=== PATIENT | female | born 1995 | race Caucasian/White ===

== ENCOUNTER 2021-07-01 00:37 | Inpatient (IN) | payer OTHER ==
[2021-07-01] MEDS ORDERED: KETOROLAC TROMETHAMINE 30 MG/1 ML VIAL IVPUSH ONE (01:18)
[2021-07-01 01:30] LABS: EPI CELLS 32 /uL (0-25.1); HYALINE CASTS 9 /uL (0-3.1); URINE APPEARANCE CLOUDY; URINE BACTERIA 1252 /uL (0-1359); URINE BILIRUBIN 1+ (NEGATIVE); URINE COLOR DK YELLOW; URINE GLUCOSE (UA) NEGATIVE (NEGATIVE); URINE KETONE NEGATIVE (NEGATIVE); URINE LEUK ESTERASE 1+ (NEGATIVE); URINE NITRITE NEGATIVE (NEGATIVE); URINE PROTEIN NEGATIVE (NEGATIVE); URINE RBC 29 /uL (0-23.9); URINE WBC 144 /uL (0-25.8)
[2021-07-01] MEDS ORDERED: KETOROLAC TROMETHAMINE 30 MG/1 ML VIAL ONE (01:47)
[2021-07-01 02:11] LABS: BASO % 1.2 % (0-2.0); EOS % 0.9 % (0-4.5); HEMATOCRIT 38.2 % (32.4-45.2); HEMOGLOBIN 12.6 GM/dL (10.7-15.3); LYMPH % 20.6 % (8-40); MCHC 32.9 g/dl (32.0-36.0); MEAN PLT VOLUME 10.7 fl (7.5-11.1); MONO % 9.3 % (3.8-10.2); PLATELET COUNT 193 10^3/uL (134-434); RBC 4.49 M/mm3 (3.60-5.2); RDW 12.8 % (11.6-15.6); WHITE BLOOD COUNT 9.2 K/mm3 (4.0-10.0)
[2021-07-01 02:30] LABS: CALCIUM 8.5 mg/dL (8.5-10.1)
[2021-07-01 02:31] LABS: ALBUMIN 3.5 g/dl (3.4-5.0); BLOOD UREA NITROGEN 13.4 mg/dL (7-18)
[2021-07-01 02:34] LABS: CREATININE 0.6 mg/dL (0.55-1.3)
[2021-07-01 02:35] LABS: BILIRUBIN,TOTAL 1.2 mg/dL (0.2-1); TOT PROT 6.8 g/dl (6.4-8.2)
[2021-07-01 03:59] LABS: INR 1.14 (0.83-1.09); PROTHROMBIN TIME (PATIENT) 13.1 SEC (9.7-13.0)
[2021-07-01 04:01] LABS: ACTIVATED PTT 27.7 SECONDS (25.2-36.5)
[2021-07-01 04:05] LABS: CHLORIDE 109 mmol/L (98-107); SODIUM 140 mmol/L (136-145)
[2021-07-01 04:06] LABS: CALCIUM 8.4 mg/dL (8.5-10.1)
[2021-07-01 04:08] LABS: ALBUMIN 3.6 g/dl (3.4-5.0); ANION GAP 7 MMOL/L (8-16); CO2 24 mmol/L (21-32); MAGNESIUM 1.8 mg/dL (1.8-2.4)
[2021-07-01 04:09] LABS: GLUCOSE,RANDOM 82 mg/dL (74-106)
[2021-07-01 04:10] LABS: SGPT/ALT 448 U/L (13-61)
[2021-07-01 04:11] LABS: BILIRUBIN,DIRECT 0.7 mg/dL (0.0-0.2); CREATININE 0.5 mg/dL (0.55-1.3); SGOT/AST 848 U/L (15-37)
[2021-07-01 04:12] LABS: PHOSPHOROUS 4.3 mg/dL (2.5-4.9); TOT PROT 6.5 g/dl (6.4-8.2)
[2021-07-01 04:13] LABS: BILIRUBIN,TOTAL 1.2 mg/dL (0.2-1); LDH 641 U/L (84-246)
[2021-07-01 04:15] LABS: ALK PHOS 201 U/L (45-117)
[2021-07-01] MEDS: SODIUM CHLORIDE 1,000 ML IV SCH ×2 (05:54→13:55)
[2021-07-01] MEDS ORDERED: PIPERACILLIN/TAZOBACTAM 3.375 GM VIAL IVPB ONE ×2 (13:52→20:30)
[2021-07-01] MEDS ORDERED: DEXTROSE 5%-WATER - 50 ML IVPB ONE ×2 (13:52→20:30)
[2021-07-01] MEDS: PIPERACILLIN/TAZOB 3.375 GM 3.375 GM in DEXTROSE 5%-WATER - 50 ML IVPB SCH (14:00)
[2021-07-01 14:29] VITALS: BMI 23.8
[2021-07-01 15:58] LABS: COCAINE, UR NEGATIVE (NEGATIVE); METHADONE, UR NEGATIVE (NEGATIVE); OPIATES, URI NEGATIVE (NEGATIVE); PHENCYCLIDINE,URINE NEGATIVE (NEGATIVE); URINE BENZODIAZEPINES NEGATIVE (NEGATIVE)
[2021-07-01 15:59] LABS: URINE AMPHETAMINES NEGATIVE (NEGATIVE)
[2021-07-01 16:00] LABS: URINE BARBITURATES NEGATIVE (NEGATIVE)
[2021-07-01 16:43] LABS: BASO % 0.6 % (0-2.0); EOS % 1.2 % (0-4.5); HEMOGLOBIN 12.6 GM/dL (10.7-15.3); LYMPH % 25.5 % (8-40); MCH 27.7 pg (25.7-33.7); MCHC 32.3 g/dl (32.0-36.0); MEAN CELL VOLUME 85.8 fl (80-96); NEUT % 64.7 % (42.8-82.8); PLATELET COUNT 209 10^3/uL (134-434); RBC 4.55 M/mm3 (3.60-5.2); RDW 12.7 % (11.6-15.6); WHITE BLOOD COUNT 6.2 K/mm3 (4.0-10.0)
[2021-07-01 17:06] LABS: ALBUMIN 3.5 g/dl (3.4-5.0); BILIRUBIN,DIRECT 0.3 mg/dL (0.0-0.2); BILIRUBIN,TOTAL 0.8 mg/dL (0.2-1); BLOOD UREA NITROGEN 7.4 mg/dL (7-18); CALCIUM 8.4 mg/dL (8.5-10.1); CREATININE 0.6 mg/dL (0.55-1.3); TOT PROT 6.2 g/dl (6.4-8.2)
[2021-07-01] MEDS ORDERED: diazePAM CARPU-JECT 10 MG/2 ML DISP.SYRIN IVPUSH PRN (18:21)
[2021-07-01 18:22] LABS: HIV INTERPRETATION NEGATIVE (NEGATIVE)
[2021-07-01] MEDS ORDERED: MELATONIN 5 MG TABLETS PO ONE (22:53)
[2021-07-02] MEDS ORDERED: DEXTROSE 5%-WATER - 50 ML IVPB ONE ×2 (00:04→10:31)
[2021-07-02] MEDS ORDERED: PIPERACILLIN/TAZOBACTAM 3.375 GM VIAL IVPB ONE ×2 (00:04→10:31)
[2021-07-02] MEDS: PIPERACILLIN/TAZOB 3.375 GM 3.375 GM in DEXTROSE 5%-WATER - 50 ML IVPB SCH ×3 (01:00→14:46)
[2021-07-02] MEDS: SODIUM CHLORIDE 1,000 ML IV SCH ×2 (01:40→08:17)
[2021-07-02] MEDS: ENOXAPARIN NA (PORCINE) 40 MG/0.4 ML DISP.SYRIN SQ SCH (10:34)
[2021-07-02 11:24] LABS: BASO % 0.7 % (0-2.0); EOS % 2.5 % (0-4.5); HEMATOCRIT 36.6 % (32.4-45.2); HEMOGLOBIN 12.2 GM/dL (10.7-15.3); LYMPH % 27.7 % (8-40); MCH 28.2 pg (25.7-33.7); MCHC 33.4 g/dl (32.0-36.0); MEAN CELL VOLUME 84.6 fl (80-96); MEAN PLT VOLUME 10.6 fl (7.5-11.1); MONO % 5.6 % (3.8-10.2); NEUT % 63.5 % (42.8-82.8); PLATELET COUNT 201 10^3/uL (134-434); RBC 4.32 M/mm3 (3.60-5.2); RDW 12.8 % (11.6-15.6); WHITE BLOOD COUNT 5.9 K/mm3 (4.0-10.0)
[2021-07-02 11:43] LABS: ALBUMIN 3.2 g/dl (3.4-5.0); BILIRUBIN,DIRECT 0.3 mg/dL (0.0-0.2); CALCIUM 8.4 mg/dL (8.5-10.1)
[2021-07-02 11:46] LABS: CREATININE 0.6 mg/dL (0.55-1.3)
[2021-07-02 11:47] LABS: BILIRUBIN,TOTAL 0.8 mg/dL (0.2-1)
[2021-07-02 11:48] LABS: BILIRUBIN,TOTAL 0.8 mg/dL (0.2-1); TOT PROT 5.7 g/dl (6.4-8.2); TOT PROT 5.9 g/dl (6.4-8.2)
[2021-07-02] MEDS ORDERED: LORazepam 1 MG TABLET PO ONE (13:45)
[2021-07-02] MEDS: MELATONIN 5 MG TABLETS PO PRN (21:47)
[2021-07-03] MEDS: SODIUM CHLORIDE 1,000 ML IV SCH ×2 (07:50→17:26)
[2021-07-03 10:27] LABS: BASO % 0.7 % (0-2.0); EOS % 2.5 % (0-4.5); HEMATOCRIT 37.6 % (32.4-45.2); HEMOGLOBIN 12.2 GM/dL (10.7-15.3); LYMPH % 29.4 % (8-40); MCH 27.6 pg (25.7-33.7); MCHC 32.4 g/dl (32.0-36.0); MEAN CELL VOLUME 85.2 fl (80-96); NEUT % 61.4 % (42.8-82.8); PLATELET COUNT 211 10^3/uL (134-434); RBC 4.42 M/mm3 (3.60-5.2); RDW 12.7 % (11.6-15.6); WHITE BLOOD COUNT 6.8 K/mm3 (4.0-10.0)
[2021-07-03 10:49] LABS: ALBUMIN 3.2 g/dl (3.4-5.0)
[2021-07-03 10:52] LABS: BILIRUBIN,DIRECT 0.2 mg/dL (0.0-0.2)
[2021-07-03 10:54] LABS: BILIRUBIN,TOTAL 0.6 mg/dL (0.2-1)
[2021-07-03] MEDS: ENOXAPARIN NA (PORCINE) 40 MG/0.4 ML DISP.SYRIN SQ SCH (12:19)
[2021-07-03] MEDS: MELATONIN 5 MG TABLETS PO PRN (21:24)
[2021-07-04] MEDS: SODIUM CHLORIDE 1,000 ML IV SCH ×3 (02:23→17:14)
[2021-07-04 10:16] LABS: BASO % 0.6 % (0-2.0); EOS % 2.5 % (0-4.5); HEMATOCRIT 37.9 % (32.4-45.2); HEMOGLOBIN 12.1 GM/dL (10.7-15.3); LYMPH % 27.5 % (8-40); MCH 27.2 pg (25.7-33.7); MCHC 31.9 g/dl (32.0-36.0); MEAN CELL VOLUME 85.2 fl (80-96); MEAN PLT VOLUME 10.3 fl (7.5-11.1); MONO % 6.7 % (3.8-10.2); NEUT % 62.7 % (42.8-82.8); PLATELET COUNT 209 10^3/uL (134-434); RBC 4.45 M/mm3 (3.60-5.2); RDW 12.9 % (11.6-15.6); WHITE BLOOD COUNT 6.6 K/mm3 (4.0-10.0)
[2021-07-04] MEDS: ENOXAPARIN NA (PORCINE) 40 MG/0.4 ML DISP.SYRIN SQ SCH (11:50)
[2021-07-04 12:20] LABS: CALCIUM 8.4 mg/dL (8.5-10.1)
[2021-07-04 12:21] LABS: ALBUMIN 3.2 g/dl (3.4-5.0); BLOOD UREA NITROGEN 6.2 mg/dL (7-18)
[2021-07-04 12:23] LABS: BILIRUBIN,DIRECT 0.1 mg/dL (0.0-0.2)
[2021-07-04 12:24] LABS: CREATININE 0.6 mg/dL (0.55-1.3)
[2021-07-04 12:25] LABS: BILIRUBIN,TOTAL 0.6 mg/dL (0.2-1); TOT PROT 5.9 g/dl (6.4-8.2)
[2021-07-04] MEDS ORDERED: MIDAZOLAM HCL 2 MG/2 ML SINGLE DOSE VIAL ONE (13:07)
[2021-07-04] MEDS ORDERED: KETAMINE HCL 200 MG/20 ML VIAL ONE (13:07)
[2021-07-04] MEDS ORDERED: ROCURONIUM BROMIDE 50 MG/5 ML SYRINGE ONE (13:07)
[2021-07-04] MEDS ORDERED: PROPOFOL 20 ML ONE (13:08)
[2021-07-04] MEDS ORDERED: BUPIVACAINE HCL/PF 0.5% (5MG/ML) 10 ML VIAL IJ ONE ×2 (13:26→13:53)
[2021-07-04] MEDS ORDERED: ceFAZolin SODIUM 1 GM VIAL IVPB ONE (13:30)
[2021-07-04] MEDS ORDERED: NEOSTIGMINE METHYLSULFATE 0.5 MG/ML - 10 ML MDV ONE (13:33)
[2021-07-04] MEDS ORDERED: ACETAMINOPHEN INJECTION 100 ML IVPB ONE (14:24)
[2021-07-04] MEDS ORDERED: ONDANSETRON 4 MG/2 ML VIAL ONE (14:24)
[2021-07-04] MEDS ORDERED: ONDANSETRON 4 MG/2 ML VIAL IVPUSH PRN (14:25)
[2021-07-04] MEDS ORDERED: ACETAMINOPHEN 1000 MG/100 ML BAG IVPB ONE ×3 (14:25→16:00)
[2021-07-04] MEDS ORDERED: MELATONIN 5 MG TABLETS PO PRN (14:37)
[2021-07-04] MEDS ORDERED: ACETAMINOPHEN 500 MG TABLET (FP) PO PRN (16:00)
[2021-07-04] MEDS ORDERED: KETOROLAC TROMETHAMINE 30 MG/1 ML VIAL IVPUSH PRN (18:50)
[2021-07-04] MEDS: oxyCODONE HCL 5 MG TABLET PO PRN (21:49)
[2021-07-04] MEDS: ACETAMINOPHEN 325 MG TABLET (FP) PO PRN (21:50)
[2021-07-05] MEDS: SODIUM CHLORIDE 1,000 ML IV SCH ×3 (01:07→14:40)
[2021-07-05] MEDS: oxyCODONE HCL 5 MG TABLET PO PRN ×3 (06:39→16:32)
[2021-07-05] MEDS: ACETAMINOPHEN 325 MG TABLET (FP) PO PRN ×3 (06:39→16:31)
[2021-07-05] MEDS ORDERED: ENOXAPARIN NA (PORCINE) 40 MG/0.4 ML DISP.SYRIN SQ SCH (10:00)
[2021-07-05 13:40] VITALS: BP 116/75; PULSE 66; TEMP 97.9
== END 2021-07-05 17:10 | disposition home or self-care (01) | DRG 263 ==
LOC: JER 00:37 → INTOOBSV 05:46 → UNDOADMOB 05:46 → JERBED 05:46 → J5S 13:15 → OBSVTOIN 07-02 09:32
PROVIDERS: ADMIT Internal Medicine
PROC: 0DNW3ZZ Release Peritoneum, Percutaneous Approach (ICD-10-PCS; 2021-07-04)
PROC: 0FT44ZZ Resection of Gallbladder, Percutaneous Endoscopic Approach (ICD-10-PCS; principal; 2021-07-04 12:00)
DX: K80.10 Calculus of gallbladder with chronic cholecystitis without obstruction (principal); N83.299 Other ovarian cyst, unspecified side; K57.90 Diverticulosis of intestine, part unspecified, without perforation or abscess without bleeding; R79.89 Other specified abnormal findings of blood chemistry; R10.31 Right lower quadrant pain; R74.01 Elevation of levels of liver transaminase levels; K66.0 Peritoneal adhesions (postprocedural) (postinfection); Z79.01 Long term (current) use of anticoagulants; Z98.84 Bariatric surgery status
CPT/HCPCS: 36415; 74177-TC; 74181-TC; 76705-TC; 76830-TC; 80048; 80053; 80076; 80307; 81003; 82248; 83615; 83690; 83735; 84100; 84703; 85025; 85610; 85730; 86140; 86704; 86705; 86708; 86709; 86803; 87086; 87340; 87389; 87517; 88304-TC; 93005; 93010; 94010; 94760; 99285-25; C9803-CS; G0378; U0003; U0005